=== PATIENT | female | born 1950 | race Caucasian/White ===

== ENCOUNTER → 2019-08-03 11:37 | Outpatient (CLI) | payer OTHER, SELFPAY ==
--- NOTE | ~2019-08-03 | XR_ITS ---
EXAMINATION: XR knee RT 2V DATE: 08/03/2019 11:57 INDICATION: Right knee pain. TECHNIQUE: 2 views of right knee were obtained. COMPARISON: None. FINDINGS: There is varus angulation at the knee. No fracture. There is severe osteoarthritis of media l compartment, moderate osteoarthritis of patellofemoral compartment, and mild osteoarthritis of late ral compartment. There is a small knee joint effusion. IMPRESSION: 1. Severe right knee osteoarthritis. 2. Small right knee joint effusion. Reviewed, dictated and finalized at location A. [employer]
== END ==
PROVIDERS: PCP Family Medicine; Visit Provider Nurse Practitioner Family
DX: M17.11 Unilateral primary osteoarthritis, right knee (principal); M25.461 Effusion, right knee
CPT/HCPCS: 73560

== ENCOUNTER 2019-08-30 13:38 | Outpatient (RCR) | payer OTHER, SELFPAY ==
--- NOTE | 2019-08-30 15:11 | PTOPEVAL ---
PHYSICAL THERAPY EVALUATION AND DISCHARGE Thank you for referring this patient to [facility]. Mya was seen today for an evaluation of right knee pain to assess for aquatic therapy. She was assessed and found she is a candidate for aquatic physical therapy to address right knee pain; however, due to co-pay for physical therapy, she requested to be provided with HEP in order to continue independently at pool at public gym. She was provided with extensive education and handouts of exercises and including exercise progression. She will be discharged from our care at this time. If Mya requires further care, we would be happy to assist. Please review, sign, date and return care CORINNA. I agree with and certify that the following plan of care is medically necessary. Referring Physician Date Attending Provider: Sohan Lewis MD Evaluation Evaluation Information Diagnosis right knee pain Onset July 2019 Subjective Information Mya is here today with Query Text:As Reported By Patient/ subacute right knee pain. She Family does have a history of arthroscopic surgery from 20 years ago. Pain initially started 4-5 years ago where she started to take stairs one at a time, but worst pain started in July of this year. She did receive an injection from the physician and it seems to help. Patient notes that she has a 30$ co-pay and is not sure will be able to return for further visits. 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 Self Report Pain Assessment Right Knee(s) Reported Pain Level 5 Pain Description Aching,Sharp Pain Frequency Acute,Continuous Current Pain Intensity 5 Lowest Pain Intensity 3 Greatest Pain Intensity 8 Pain Aggravating Factors Stair Climbing,Walking,Weight Bearing/Standing Knee Range of Motion Right Knee Flexion Range of Motion - Active 117 Knee Extension Range of Motion - Active 0 Query Text: Hip Strength Left Hip Flexion Strength 4+ Good + Hip Extension Strength 4+ Good + Hip Abduction Strength 4+ Good + Right Hip Flexion Strength 3+ Fair + Hip Extension Strength 4- Good - Hip Abduction Strength 4- Good - Knee Strength Left Knee Flexion Strength 5 Normal Knee Extension Strength 4+ Good + Right Knee Fle
== END 2019-09-03 11:10 | disposition home or self-care (01) ==
LOC: ANHPT 13:38
PROVIDERS: Visit Provider Orthopaedic Surgery
DX: M25.561 Pain in right knee (principal)
CPT/HCPCS: 97110; 97161

== ENCOUNTER 2020-02-20 02:16 | Outpatient (CLI) | payer OTHER, SELFPAY ==
[2020-02-20 18:39] LABS: SARS-CoV-2 RNA PCR Negative
== END 2020-02-20 02:17 | disposition home or self-care (01) ==
LOC: ANHCOVIDDT 02:16
PROVIDERS: Visit Provider Internal Medicine Gastroenterology
DX: Z01.812 Encounter for preprocedural laboratory examination (principal); Z20.828 Contact with and (suspected) exposure to other viral communicable diseases
CPT/HCPCS: 87635; C9803; U0003

== ENCOUNTER 2020-02-22 00:40 | Day surgery (SDC) | payer OTHER, SELFPAY ==
[2020-02-15 13:24] VITALS: BMI 36.4
[2020-02-22] MEDS: LACTATED RINGERS 1,000 ML 150 ML IV CONT (06:32)
[2020-02-22 06:33] VITALS: BP 113/89; PULSE 85; TEMP 37.1; O2SAT 97; BMI 36.8
--- NOTE | 2020-02-22 06:47 | WPDANESEPPF ---
Anes - Initial Pre Proc Eval Procedure: Operation Date: 02/22/20 07:30 Proposed Procedures p Screening Colonoscopy - Fam Munroe MD Date/Time: 02/22/20 06:47 Surgeon: Fam Munroe MD Pre Op Diagnosis: History of Polyps Patient Data Age: 69 Gender: F Height: 1.5 m Weight: 82.6 kg Last Vital Signs Temp 37.1 C 02/22/20 06:33 Pulse 85 02/22/20 06:33 BP 113/89 02/22/20 06:33 Pulse Ox 97 02/22/20 06:33 Allergies Allergy/AdvReac Type Severity Reaction Status Date / Time Sulfa (Sulfonamide Allergy Intermediate headache/na Verified 02/22/20 06:18 Antibiotics) usea/rash hydrocodone Allergy Mild VOMITOING/C Verified 02/22/20 06:18 RAMPS Penicillins Allergy Mild THROAT Verified 02/22/20 06:18 SWELLING tramadol Allergy Mild VOMITING Verified 02/22/20 06:18 CRAMPS morphine Allergy Unknown RASH,VOMITI Verified 02/22/20 06:18 NG NOVOCAINE Allergy Mild HAE Uncoded 02/22/20 06:18 HEADACHES/NAUSEA X 2 DAYS STRAWBERRIES, CHOCOLATE Allergy Unknown Unknown Uncoded 02/22/20 06:18 Home Medications Medication Instructions Recorded Confirmed Type fluticasone propionate 50 1 spray NASAL Q12H #18.2 ml 06/05/19 02/22/20 Rx mcg/actuation nasal spray,suspension hydrochlorothiazide 12.5 mg tablet 12.5 mg PO DAILY #90 tablet 06/05/19 02/15/20 Rx clonidine HCl 0.1 mg tablet 0.1 mg PO BID PRN #180 tablet 08/02/19 02/22/20 Rx multivitamin 1 tablet PO DAILY 08/02/19 02/15/20 History fenofibrate 160 mg tablet 160 mg PO DAILY #90 tablet 01/30/20 02/22/20 Rx alendronate 70 mg tablet 70 mg PO WEEKLY #12 tablet 02/14/20 02/22/20 Rx amlodipine 10 mg tablet 10 mg PO DAILY #90 tablet 02/14/20 02/22/20 Rx calcium carbonate 600 mg (1,500 1 cap PO DAILY 02/14/20 02/22/20 History mg)-vitamin D3 500 unit capsule duloxetine 60 mg capsule,delayed 60 mg PO DAILY #90 cap 02/14/20 02/22/20 Rx release losartan 100 mg tablet 100 mg PO DAILY #90 tablet 02/14/20 02/15/20 Rx omeprazole 20 mg capsule,delayed 20 mg PO DAILY #90 cap 02/14/20 02/15/20 Rx release Zfudwvdh-Nlzmw-SNF(with boron) 2 tab-cap PO DAILY 02/15/20 02/22/20 History diphenhydramine HCl [Benadryl] 25 mg PO DAILY PRN 02/15/20 02/22/20 History Patient hx anesthesia problems: none Family hx anesthesia problems: none PMFSH Past Medical History Medical History (Updated 02/19/20 @ 16:15 by Angela Lopez PA-C) Asthma Atherosclerosis of aorta Back pain Chronic diastolic (congestive) heart failure Chronic sinus infection Depression Diverticulosis Endometriosis Epistaxis Gallbladder disease GERD (gastroesophageal reflux disease) Heart murmur HLD (hyperlipidemia) HTN (hypertension) IBS (irritable bowel syndrome) MDD (major depressive disorder), recurrent episode, moderate Mitral valve prolapse Obstructive sleep apnea Osteoarthritis Osteopenia Pancreatic cyst Pancreatitis Rectal polyp Sleep apnea Stress incontinence Toe fracture, left Ulcer Surgical History Surgical History History of section History of cholecystectomy History of cochlear implant rt ear History of colon surgery History of dilation and curettage History of hysterectomy History of neck surgery History of tonsillectomy S/P arthroscopic surgery of right knee Social History Social History (Updated 02/14/20 @ 14:01 by Litzy Webb) Social History: Smoking status: Never smoker Second hand tobacco smoke exposure: No Alcohol intake: never Substance use: never Substance use type: does not use Gender identity (if verbalized by the patient): Female Anes - Eval Final PreProcedure Day of Procedure 02/22/20 06:47 Patient weight: obese Heart: regular rate and rhythm Lungs: clear to auscultation and normal air movement Airway: Mallampati scale class II Neurological: alert and oriented Last oral intake: >/= 8 hours ASA classification: III
--- NOTE | 2020-02-22 07:07 | PM.HPGS ---
History of Present Illness History of Present Illness Consent: Risks, benefits, and alternatives have been discussed and questions answered. Patient agrees to proceed with procedure. Chief complaint: History of Polyps Narrative: Mya Espinoza is a 69 year old female With a history of polyps. She also has a family history of colon cancer [facility] Past Medical History Medical History Asthma Atherosclerosis of aorta Back pain Chronic diastolic (congestive) heart failure Chronic sinus infection Depression Diverticulosis Endometriosis Epistaxis Gallbladder disease GERD (gastroesophageal reflux disease) Heart murmur HLD (hyperlipidemia) HTN (hypertension) IBS (irritable bowel syndrome) MDD (major depressive disorder), recurrent episode, moderate Mitral valve prolapse Obstructive sleep apnea Osteoarthritis Osteopenia Pancreatic cyst Pancreatitis Rectal polyp Sleep apnea Stress incontinence Toe fracture, left Ulcer Surgical History Surgical History History of section History of cholecystectomy History of cochlear implant rt ear History of colon surgery History of dilation and curettage History of hysterectomy History of neck surgery History of tonsillectomy S/P arthroscopic surgery of right knee Social History Social History Social History: Smoking status: Never smoker Second hand tobacco smoke exposure: No Alcohol intake: never Substance use: never Substance use type: does not use Gender identity (if verbalized by the patient): Female Meds Home Medications and Allergies Home Medications Medication Instructions Recorded Confirmed Type fluticasone propionate 50 1 spray NASAL Q12H #18.2 ml 06/05/19 02/22/20 Rx mcg/actuation nasal spray,suspension hydrochlorothiazide 12.5 mg tablet 12.5 mg PO DAILY #90 tablet 06/05/19 02/15/20 Rx clonidine HCl 0.1 mg tablet 0.1 mg PO BID PRN #180 tablet 08/02/19 02/22/20 Rx multivitamin 1 tablet PO DAILY 08/02/19 02/15/20 History fenofibrate 160 mg tablet 160 mg PO DAILY #90 tablet 01/30/20 02/22/20 Rx alendronate 70 mg tablet 70 mg PO WEEKLY #12 tablet 02/14/20 02/22/20 Rx amlodipine 10 mg tablet 10 mg PO DAILY #90 tablet 02/14/20 02/22/20 Rx calcium carbonate 600 mg (1,500 1 cap PO DAILY 02/14/20 02/22/20 History mg)-vitamin D3 500 unit capsule duloxetine 60 mg capsule,delayed 60 mg PO DAILY #90 cap 02/14/20 02/22/20 Rx release losartan 100 mg tablet 100 mg PO DAILY #90 tablet 02/14/20 02/15/20 Rx omeprazole 20 mg capsule,delayed 20 mg PO DAILY #90 cap 02/14/20 02/15/20 Rx release Srhwaigp-Obqyd-URI(with boron) 2 tab-cap PO DAILY 02/15/20 02/22/20 History diphenhydramine HCl [Benadryl] 25 mg PO DAILY PRN 02/15/20 02/22/20 History Allergies Allergy/AdvReac Type Severity Reaction Status Date / Time Sulfa (Sulfonamide Allergy Intermediate headache/na Verified 02/22/20 06:18 Antibiotics) usea/rash hydrocodone Allergy Mild VOMITOING/C Verified 02/22/20 06:18 RAMPS Penicillins Allergy Mild THROAT Verified 02/22/20 06:18 SWELLING tramadol Allergy Mild VOMITING Verified 02/22/20 06:18 CRAMPS morphine Allergy Unknown RASH,VOMITI Verified 02/22/20 06:18 NG NOVOCAINE Allergy Mild HAE Uncoded 02/22/20 06:18 HEADACHES/NAUSEA X 2 DAYS STRAWBERRIES, CHOCOLATE Allergy Unknown Unknown Uncoded 02/22/20 06:18 Vital Signs Vital Signs - 24 hr 02/22/20 06:33 Temperature 37.1 C Pulse Rate 85 Blood Pressure 113/89 Pulse Oximetry 97 Exam Resp: Auscultation: clear to auscultation bilaterally Cardio: Rate: regular rate Rhythm: regular rhythm GI: GI Palp: Yes Soft to palpation and No Tenderness to palpation present (GI) Assessment and Plan Assessment and plan (1) Personal history of colonic polyps: Code(s): Z86.010 - Pe
[2020-02-22 07:44] VITALS: BP 111/63; PULSE 74; RESP 20; O2SAT 98
[2020-02-22 07:54] VITALS: BP 124/63; PULSE 69; RESP 21; O2SAT 97
[2020-02-22 08:04] VITALS: BP 124/72; PULSE 60; RESP 17; O2SAT 95
== END 2020-02-22 08:13 | disposition home or self-care (01) ==
PROVIDERS: Visit Provider Internal Medicine Gastroenterology
PROC: 0DJD8ZZ Inspection of Lower Intestinal Tract, Via Natural or Artificial Opening Endoscopic (ICD-10-PCS; CPT 45378; principal; 2020-02-22 07:30)
DX: Z12.11 Encounter for screening for malignant neoplasm of colon (principal); Z86.010 Personal history of colon polyps; Z80.0 Family history of malignant neoplasm of digestive organs; K57.30 Diverticulosis of large intestine without perforation or abscess without bleeding; J45.909 Unspecified asthma, uncomplicated; I50.32 Chronic diastolic (congestive) heart failure; K21.9 Gastro-esophageal reflux disease without esophagitis; I11.0 Hypertensive heart disease with heart failure; E78.5 Hyperlipidemia, unspecified; G47.33 Obstructive sleep apnea (adult) (pediatric)
CPT/HCPCS: G0105; J2704; J7120

== ENCOUNTER 2020-02-25 14:19 | Outpatient (CLI) | payer OTHER, SELFPAY ==
--- NOTE | ~2020-02-25 | MM_ITS ---
EXAMINATION: MM screening maria teresa BI w joce HISTORY: Screening TECHNIQUE: Craniocaudal and mediolateral oblique 3-D tomosynthesis images were obtained and synthetic 2-D images were generated. CAD analysis was submitted and interpreted. COMPARISON: Comparison to multiple prior studies sequentially, with oldest reviewed study dated 02/26. BREAST PARENCHYMAL COMPOSITION: There are scattered areas of fibroglandular density. FINDINGS: There is no evidence of suspicious mass, calcification, or architectural distortion to sugg est malignancy in either breast. There has been no suspicious interval change. IMPRESSION: 1. No mammographic evidence of malignancy. 2. Recommend routine screening mammography in one year. BI-RADS Category 1: Negative Reviewed, dictated and finalized at location A.
== END 2020-02-25 14:20 | disposition home or self-care (01) ==
LOC: ANHIMG 14:21
PROVIDERS: Visit Provider Physician Assistant
DX: Z12.31 Encounter for screening mammogram for malignant neoplasm of breast (principal)
CPT/HCPCS: 77063; 77067

== ENCOUNTER 2020-12-22 11:41 | Outpatient (CLI) | payer OTHER, SELFPAY ==
[2020-12-22 13:45] LABS: Basophils Absolute Auto 0.1 K/mm3 (0.0-0.1); Basophils Percent Auto 0.8 % (0.2-1.2); Eosinophils Absolute Auto 0.1 K/mm3 (0-0.3); Eosinophils Percent Auto 1.8 % (0-4.4); Hematocrit 47.5 % (37.0-47.0); Hemoglobin 16.2 g/dL (12.0-15.0); Immature Granulocyte Absolute 0.02 K/mm3 (0.00-0.031); Immature Granulocyte Percent A 0.3 % (0-0.5); Lymphocytes Absolute Auto 2.89 K/mm3 (0.9-3.2); Mean Corpuscular HGB Conc 34.1 g/dl (32-36); Mean Platelet Volume 12.1 fl (7.4-10.4); Monocytes Absolute Auto 0.6 K/mm3 (0.1-0.6); Monocytes Percent Auto 7.3 % (2.6-8.5); Neutrophils Absolute Auto 4.1 K/mm3 (1.3-6.7); Neutrophils Percent Auto 52.8 % (45.5-73.1); Platelet Count Result 267 k/mm3 (150-375); Red Cell Distribution Width 12.9 % (11.5-14.5); White Blood Count 7.8 K/mm3 (4.5-10.0)
[2020-12-22 13:47] LABS: Add Urine Microscopic? NO; Appearance Urine Clear (Clear); Bilirubin Urine Negative (Negative); Blood Urine Negative (Negative); Color Urine Straw (Yellow); Glucose Urine UA Negative (Negative); Ketones Urine Negative (Negative); Leukocyte Esterase Ur Negative LEU/UL (Negative); Nitrate Urine Negative (Negative); Protein Urine Negative (Negative); Specific Grav Ur 1.008 (1.001-1.035); Urobilinogen Urine Negative mg/dL (<2.0)
[2020-12-22 13:52] LABS: Hemoglobin A1C 5.8 % (<5.7)
[2020-12-22 13:53] LABS: Urine Cotinine NEGATIVE
[2020-12-22 13:54] LABS: Anion Gap 8 mmol/L (8-16); Blood Urea Nitrogen 12 mg/dL (7-17); Calcium 9.9 mg/dL (8.4-10.2); Carbon Dioxide 32 mmol/L (22-30); Chloride 102 mmol/L (98-107); Estimated Glomerular Filt Rate > 60; Glucose 101 mg/dL (65-105); INR 0.9; Prothrombin Time 12.9 Seconds (11.1-14.7); Sodium 142 mmol/L (137-145)
== END 2020-12-22 11:42 | disposition home or self-care (01) ==
PROVIDERS: Visit Provider Orthopaedic Surgery
DX: Z01.818 Encounter for other preprocedural examination (principal); M17.10 Unilateral primary osteoarthritis, unspecified knee
CPT/HCPCS: 80048; 80307; 81003; 82040; 83036; 85025; 85610; 85730; 86850; 86900; 86901; 87081

== ENCOUNTER 2020-12-31 18:44 | Observation (INO) | payer OTHER, SELFPAY ==
[2020-12-22 12:22] VITALS: BP 142/74; PULSE 86; RESP 18; TEMP 37; O2SAT 94; BMI 32.1
[2020-12-30] VITALS (14 sets, daily range): BP systolic 129–156; BP diastolic 64–92; PULSE 81–95; RESP 12–20; TEMP 36.3–36.8; O2SAT 89–97
--- NOTE | 2020-12-30 07:31 | WPDHPUPDATE1 ---
History and Physical Update Update Date/Time: 12/30/20 07:31 History and Physical has been reviewed, including an updated exam of the patient. There are NO changes in the patient's condition. Risks, benefits, and alternatives have been discussed and questions answered. Patient agrees to proceed with procedure.
[2020-12-30] MEDS: ACETAMINOPHEN 500 MG TABLET 1000 MG PO (09:36)
--- NOTE | 2020-12-30 09:50 | WPDANESEPPF ---
Anes - Initial Pre Proc Eval Procedure: Operation Date: 12/30/20 11:00 Proposed Procedures p Right Total Knee Arthroplasty - Jamie Silva MD Date/Time: 12/30/20 09:50 Surgeon: Jamie Silva MD Pre Op Diagnosis: right knee DJD Patient Data Age: 70 Gender: F Height: 1.5 m Weight: 71.5 kg Last Vital Signs Temp 36.8 C 12/30/20 09:20 Pulse 81 12/30/20 09:20 Resp 16 12/30/20 09:20 BP 129/66 12/30/20 09:20 Pulse Ox 97 12/30/20 09:20 Allergies Allergy/AdvReac Type Severity Reaction Status Date / Time morphine Allergy Severe RASH,VOMITING,throat Verified 12/30/20 09:28 swelling Penicillins Allergy Severe THROAT Verified 12/30/20 09:28 SWELLING Sulfa (Sulfonamide Allergy Intermediate headache/na Verified 12/30/20 09:28 Antibiotics) usea/rash procaine [From Novocain] Allergy Mild Headache, Verified 12/30/20 09:28 nausea, rash hydrocodone AdvReac Mild VOMITTING Verified 12/30/20 09:28 Home Medications Medication Instructions Recorded Confirmed Type multivitamin 1 tablet PO DAILY 08/02/19 12/30/20 History calcium carbonate 600 mg (1,500 1 cap PO HS 02/14/20 12/30/20 History mg)-vitamin D3 500 unit capsule Ionfyaav-Cfzte-QEV(with boron) 2 tab-cap PO QAM 02/15/20 12/30/20 History diphenhydramine HCl [Benadryl] 25 mg PO DAILY PRN 02/15/20 12/30/20 History alendronate 70 mg tablet 70 mg PO WEEKLY #12 tablet 08/01/20 12/30/20 Rx rosuvastatin 5 mg tablet 5 mg PO QPM #90 tablet 10/13/20 12/30/20 Rx clonidine HCl 0.1 mg tablet 0.1 mg PO BID PRN #180 tablet 11/13/20 12/30/20 Rx Serovital Hgh 4 tablet DAILY 12/22/20 12/30/20 History amlodipine 10 mg PO HS 12/22/20 12/30/20 History collagen (bovine) 1 ea TOPICAL DAILY 12/22/20 12/30/20 History duloxetine [Cymbalta] 60 mg PO QAM 12/22/20 12/22/20 History furosemide 20 mg PO PRN PRN 12/22/20 12/30/20 History losartan-hydrochlorothiazide 1 tablet PO QAM 12/22/20 12/30/20 History omeprazole 40 mg PO QAM 12/22/20 12/30/20 History polyethylene glycol 3350 [Miralax] 17 g PO QAM 12/22/20 12/30/20 History Patient hx anesthesia problems: none Family hx anesthesia problems: none PMFSH Past Medical History Medical History Abscess Asthma Atherosclerosis of aorta Back pain Chronic diastolic (congestive) heart failure Chronic sinus infection Degenerative joint disease of knee Depression Diverticulosis Endometriosis Epistaxis Gallbladder disease GERD (gastroesophageal reflux disease) Heart murmur HLD (hyperlipidemia) HTN (hypertension) IBS (irritable bowel syndrome) MDD (major depressive disorder), recurrent episode, moderate Mitral regurgitation Mitral valve prolapse Mixed hyperlipidemia Obstructive sleep apnea Osteoarthritis Osteoarthritis of right knee Osteopenia Pancreatic cyst Pancreatitis Personal history of colonic polyps Rectal polyp Right knee pain Screening for breast cancer Sleep apnea Stress incontinence Toe fracture, left Ulcer URI (upper respiratory infection) Surgical History Surgical History History of section History of cholecystectomy History of cochlear implant rt ear History of colon surgery History of dilation and curettage History of hysterectomy History of neck surgery History of tonsillectomy S/P arthroscopic surgery of right knee Family History Family History Father Family history of premature coronary heart disease, Onset Age: 78 Patient's father is Social History Social History Social History: Second hand tobacco smoke exposure: No Alcohol intake: never Substance use: never Substance use type: does not use Gender identity (if verbalized by the patient): Female Spiritual care concerns: No Anes - Eval Final P
[2020-12-30] MEDS: LACTATED RINGERS 1,000 ML 30 ML IV CONT ×2 (10:02→13:35)
[2020-12-30] MEDS: TRANEXAMIC ACID 1,000MG/ISO100 1,000 MG/100 ML BAG 200 MG IVPB (10:36)
--- NOTE | 2020-12-30 10:43 | WPDANESPNB ---
Anes - Peripheral Nerve Block Date/Time: 12/30/20 10:43 I have discussed with the patient/family/POA the placement of a peripheral nerve block for post-operative pain management, including associated risks, benefits, complications, and side effects. Alternative methods of post-operative analgesia were detailed. Questions were solicited and answers provided to the satisfaction of the patient/family/POA. Time-Out: A pre-procedural Time-Out was completed immediately before starting the procedure and confirmed: Patient Identification, Site, Procedure, Patient Position and the Availability of Requisite Equipment. Clinical Indications: Acute post-operative pain management requested by the operative surgeon. Nerve Block Insertion Note Anes-nerve block: femoral right Patient position: supine Needle: 22 gauge, stimulating, insulated echogenic needle. Needle length: 50 mm Technique: nerve stimulation lost at (mA) (0.4) Injectate: bupivacaine 0.5% with epi 5 mcg/ml Observations: tolerated well Complications: none Procedure start time:: 1040 Procedure end time:: 1044
[2020-12-30] MEDS: ceFAZolin 2 GM/D5W 50 ML 2 GM/50 ML BAG IVPB ×2 (11:00→18:04)
[2020-12-30] MEDS: GENTAMICIN BONE CEMENT REFOBACIN 1 EACH TOPICAL (12:02)
[2020-12-30] MEDS: TRANEXAMIC ACID 1,000 MG/10 ML AMPUL 1000 MG IV PUSH (12:45)
--- NOTE | 2020-12-30 13:29 | W.PM.PROC2 ---
Procedure Note - Detailed Date of Procedure 12/30/20 Pre-op Diagnosis right knee DJD Post-op Diagnosis same Procedure Performed R TKA Surgeon Jamie Silva MD Anesthesia general Description of Procedure THE RIGHT KNEE WAS PREPPED AND DRAPED IN THE STERILE FASHION. THERE WAS A 10 DEGREE FLEXION CONTRACTURE. A MIDLINE SKIN INCISION WAS MADE. A MEDIAL PARAPATELLAR ARTHROTOMY WAS MADE. THE PATELLA WAS EVERTED. THERE WAS TRICOMPARTMENT DJD. THERE WAS MINIMAL PATELLA DJD. AN INTRAMEDULLARY KULWINDER WAS PLACED IN THE FEMUR. A DISTAL FEMORAL CUT WAS MADE IN 5 DEGREES OF VALGUS REMOVING APPROXIMATELY 9 MM OF BONE FROM THE DISTAL FEMUR. THE FEMUR WAS SIZED TO 62.5. A 62.5 FEMORAL CUTTING BLOCK WAS PLACED IN 3 DEGREES OF EXTERNAL ROTATION AND IN ALIGNMENT WITH ILENE'S LINE AND THE TRANSEPICONDYLAR AXIS. ANTERIOR POSTERIOR AND CHAMFER CUTS WERE MADE. THE CUTS WERE EXCELLENT. NEXT AN INTRAMEDULLARY CUTTING GUIDE WAS PLACED IN THE TIBIA. A TRANS TIBIAL CUT WAS MADE ALONG THE LONG AXIS OF THE TIBIA. APPROXIMATELY 10 MM OF BONE WAS REMOVED FROM THE HIGH SIDE OF THE TIBIA. THE TIBIA WAS THEN PLANED TO A SMOOTH SURFACE. POSTERIOR FEMORAL OSTEOPHYTES WERE REMOVED FROM THE FEMORAL CONDYLES. A 67 TIBIAL TRIAL WAS PLACED IN ALIGNMENT WITH THE 1/3 MEDIAL ASPECT OF THE TIBIAL TUBERCLE. THEN A 62.5 FEMORAL TRIAL COMPONENT WAS PLACED. BOTH HAD EXCELLENT FITS. EVENTUALLY A 10 MM CR POLYETHYLENE TRIAL COMPONENT WAS PLACED. THE KNEE WAS TAKEN THROUGH A RANGE OF MOTION. THE KNEE CAME OUT TO FULL EXTENSION. THERE WAS NO ABNORMAL TILT TO THE PATELLA. THERE WAS GOOD A/P AND VARUS/VALGUS STABILITY. THERE WAS NO EXCESSIVE ROLL BACK WITH FLEXION. THE TRIAL COMPONENTS WERE REMOVED. THEN A 62.5 FEMORAL COMPONENT AND 67 TIBIAL COMPONENT WITH A 10 CR POLYETHYLENE COMPONENT WERE CEMENTED INTO PLACE. ONCE THE CEMENT WAS HARD THE KNEE WAS TAKEN THROUGH A ROM AGAIN AND FOUND TO BE STABLE WITH NO PATELLA TILT NO EXCESSIVE ROLL BACK WITH FLEXION AND GOOD STABILITY WITH COMPLETE AND FULL EXTENSION. THE KNEE WAS IRRIGATED WITH STERILE BETADINE AND WATER FOR ABOUT 3 MINUTES. THE BLEEDERS WERE CAUTERIZED. THE ARTHROTOMY WAS REPAIRED WITH NUMBER 1 VICRYL. THE SUB CUTANEOUS LAYER WITH 2-0 VICRYL AND THE SKIN WITH LUKAS. THE WOUND WAS WASHED AND A STERILE DRESSING WAS APPLIED. PATIENT WAS EXTUBATED. Estimated Blood Loss -150.0 Pathology none sent Complications No immediate complications Condition stable Disposition PACU
[2020-12-30] MEDS: fentaNYL CITRATE INJ (*CRX) 100 MCG/2 ML VIAL 25 MCG IV PUSH (14:43)
[2020-12-30] MEDS: oxyCODONE HCL (*CRX) 2.5 MG TAB IR 7.5 MG PO ×2 (15:18→19:47)
[2020-12-30] MEDS: SODIUM CHLORIDE 0.9% IV 1,000 ML 125 ML IV CONT (15:20)
--- NOTE | 2020-12-30 15:20 | ADMGEN ---
This patient, Mya Espinoza, was admitted to 2 Medical Room 241-. Patient/family oriented to hospital policies and general routines including ID bracelet, bed and alarms, visiting hours, pain management, procedures, bathroom and other care routines, personal items, smoking policy, room service/diet, and visiting hours. Information on how to activate the Rapid Response Team has been discussed. Patient/Family are encouraged to report perceived risks to care and to ask questions if they do not understand what they are told or what they should do.
[2020-12-30] MEDS: DOCUSATE SODIUM 100 MG CAPSULE PO (16:48)
[2020-12-30] MEDS: CELECOXIB 200 MG CAPSULE PO (16:48)
[2020-12-30] MEDS: ROSUVASTATIN 5 MG TABLET PO (16:49)
[2020-12-30] MEDS: FAMOTIDINE 20 MG TABLET PO (20:42)
[2020-12-30] MEDS: ASPIRIN 325 MG ENTERIC TABLET PO (20:42)
[2020-12-30] MEDS: amLODIPine BESYLATE 5 MG TABLET 10 MG PO (20:43)
[2020-12-30] MEDS: PANTOPRAZOLE 40 MG TABLET PO (20:43)
[2020-12-30] MEDS: diazePAM (*CRX) 5 MG TABLET PO (20:44)
[2020-12-30] MEDS: oxyCODONE/ACETAMINOPHEN (*CRX) 5-325 MG TABLET 1 TABLET PO (21:53)
[2020-12-31] VITALS (7 sets, daily range): BP systolic 101–132; BP diastolic 54–83; PULSE 74–99; RESP 14–20; TEMP 36.1–36.9; O2SAT 90–99
--- NOTE | ~2020-12-31 | XR_ITS ---
EXAMINATION: XR knee RT 2V DATE: 12/30/2020 14:08 INDICATION: Right knee arthroplasty. Postop. TECHNIQUE: 2 views of right knee were obtained. COMPARISON: Right knee radiographs 11/06/2020 FINDINGS: There is a total right knee arthroplasty in near-anatomic alignment without patellar resurf acing. No fracture. There is gas and fluid in the knee joint. There is gas in the soft tissues, consi stent with recent surgery. Anterior skin elias are noted. IMPRESSION: 1. Total right knee arthroplasty in near-anatomic alignment. Reviewed, dictated and finalized at location A.
[2020-12-31] MEDS: ceFAZolin 2 GM/D5W 50 ML 2 GM/50 ML BAG IVPB ×2 (02:32→11:23)
[2020-12-31] MEDS: oxyCODONE/ACETAMINOPHEN (*CRX) 5-325 MG TABLET 1 TABLET PO ×2 (02:33→06:37)
[2020-12-31 05:47] LABS: Basophils Percent Auto 0.2 % (0.2-1.2); Hematocrit 36.5 % (37.0-47.0); Hemoglobin 12.7 g/dL (12.0-15.0); Immature Granulocyte Absolute 0.04 K/mm3 (0.00-0.031); Immature Granulocyte Percent A 0.3 % (0-0.5); Lymphocytes Percent Auto 9.3 % (18.3-44.2); Mean Corpuscular HGB Conc 34.8 g/dl (32-36); Mean Corpuscular Hemoglobin 30.4 pg (26-34); Mean Corpuscular Volume 87.3 fl (80-100); Mean Platelet Volume 11.7 fl (7.4-10.4); Monocytes Absolute Auto 1.5 K/mm3 (0.1-0.6); Monocytes Percent Auto 9.9 % (2.6-8.5); Neutrophils Percent Auto 80.3 % (45.5-73.1); Platelet Count Result 244 k/mm3 (150-375); Red Blood Count 4.18 M/mm3 (4.2-5.4)
[2020-12-31 06:01] LABS: Anion Gap 7 mmol/L (8-16); Blood Urea Nitrogen 13 mg/dL (7-17); Calcium 9.1 mg/dL (8.4-10.2); Carbon Dioxide 31 mmol/L (22-30); Chloride 98 mmol/L (98-107); Estimated Glomerular Filt Rate > 60; Glucose 135 mg/dL (65-105); Potassium 3.7 mmol/L (3.4-5.0); Sodium 136 mmol/L (137-145)
--- NOTE | 2020-12-31 07:39 | P.PNAN_ITS ---
Anes - Prog Note Post-Op Date/Time: 12/31/20 07:39 Cardiovascular status: normal Respiratory status: normal Airway patency: baseline Mental status: baseline Post-Op hydration status: normal Vital Signs: Last Vital Signs Temp 36.9 C 12/31/20 05:04 Pulse 93 12/31/20 05:04 Resp 20 12/31/20 05:04 BP 129/64 12/31/20 05:04 Pulse Ox 92 12/31/20 05:04 Pain Score (VAS): 3 I/O: Intake & Output 12/30/20 12/30/20 12/31/20 15:59 23:59 07:59 Intake Total 350 930 340 Output Total 900 Balance 350 930 -560 Laboratory Tests 12/31/20 05:04 12/31/20 05:04 12/31/20 12/31/20 05:04 05:04 WBC 15.0 H RBC 4.18 L Hgb 12.7 D Hct 36.5 L MCV 87.3 MCH 30.4 MCHC 34.8 RDW 13.0 Plt Count 244 MPV 11.7 H Immature Gran % (Auto) 0.3 Neut % (Auto) 80.3 H Lymph % (Auto) 9.3 L Warrick % (Auto) 9.9 H Eos % (Auto) 0.0 Baso % (Auto) 0.2 Lymph # (Auto) 1.40 Warrick # (Auto) 1.5 H Eos # (Auto) 0.0 Baso # (Auto) 0.0 Abs Immat Gran (auto) 0.04 H Absolute Neuts (auto) 12.0 H Absolute Nucleated RBC 0.0 Nucleated RBC % 0.0 Sodium 136 L Potassium 3.7 Chloride 98 Carbon Dioxide 31 H Anion Gap 7 L BUN 13 Creatinine 0.50 L Estim Creat Clear Calc Not Reportable Estimated GFR > 60 Glucose 135 H Calcium 9.1 Post-procedural complaints: none Patient Feedback: Patient satisfied with anesthetic care.
--- NOTE | 2020-12-31 08:01 | PM.IMCN ---
Assessment and Plan Assessment and plan (1) Osteoarthritis of right knee: Code(s): M17.11 - Unilateral primary osteoarthritis, right knee Status: Acute Assessment and Plan: Status post right knee surgery. Will continue pain medication and physical therapy. (2) Mixed hyperlipidemia: Code(s): E78.2 - Mixed hyperlipidemia Status: Acute Assessment and Plan: Stable current medication. (3) HTN (hypertension): Code(s): I10 - Essential (primary) hypertension Status: Acute Assessment and Plan: Will monitor closely stable on current medication. (4) GERD (gastroesophageal reflux disease): Code(s): K21.9 - Gastro-esophageal reflux disease without esophagitis Status: Acute Assessment and Plan: stable on current medications (5) Depression: Code(s): F32.9 - Major depressive disorder, single episode, unspecified Status: Acute Assessment and Plan: Stable on current medication Additional Plan Will continue with physical therapy. Will continue pain management. Monitor blood pressure closely. HPI Data of Consult Consult date: 12/31/20 Requesting Physician: Jamie Silva MD Primary Care Provider: Lauryn Gabriel Consult Narrative Narrative: Mya Espinoza is a 70 year old female was seen today for management of hypertension and high cholesterol. Patient is status post right knee surgery. Patient denies any complaints at present time. Patient denies any shortness of breath or chest pain. No abdominal pain, no nausea, no vomiting. No fever. Mood stable. Pain under control. Review of Systems Review of Systems: All systems reviewed & are unremarkable except as noted in HPI and below ( the history and physical exam.) [facility] Past Medical History Medical History (Updated 12/31/20 @ 08:10 by Adrian Campos MD) Abscess Asthma Atherosclerosis of aorta Back pain Chronic diastolic (congestive) heart failure Chronic sinus infection Degenerative joint disease of knee Depression Diverticulosis Endometriosis Epistaxis Gallbladder disease GERD (gastroesophageal reflux disease) Heart murmur HLD (hyperlipidemia) HTN (hypertension) IBS (irritable bowel syndrome) MDD (major depressive disorder), recurrent episode, moderate Mitral regurgitation Mitral valve prolapse Mixed hyperlipidemia Obstructive sleep apnea Osteoarthritis Osteoarthritis of right knee Osteopenia Pancreatic cyst Pancreatitis Personal history of colonic polyps Rectal polyp Right knee pain Screening for breast cancer Sleep apnea Stress incontinence Toe fracture, left Ulcer URI (upper respiratory infection) Surgical History Surgical History History of section History of cholecystectomy History of cochlear implant rt ear History of colon surgery History of dilation and curettage History of hysterectomy History of neck surgery History of tonsillectomy S/P arthroscopic surgery of right knee Family History Family History Father Family history of premature coronary heart disease, Onset Age: 78 Patient's father is Social History Social History Social History: Smoking status: Never smoker Second hand tobacco smoke exposure: No Alcohol intake: never Substance use: never Substance use type: does not use Gender identity (if verbalized by the patient): Female Spiritual care concerns: No Meds Home Medications and Allergies Home Medications Medication Instructions Recorded Confirmed Type multivitamin 1 tablet PO DAILY 08/02/19 12/30/20 History calcium carbonate 600 mg (1,500 1 cap PO HS 02/14/20 12/30/20 History mg)-vitamin D3 500 unit capsule [id number](with boron) 2 tab-cap PO QAM 02/15/20 12/30/20 History
[2020-12-31] MEDS: ONDANSETRON INJ 4 MG/2 ML VIAL IV PUSH ×2 (08:10→19:41)
[2020-12-31] MEDS: ACETAMINOPHEN 500 MG TABLET 1000 MG PO (08:10)
[2020-12-31] MEDS: hydroCHLOROthiazide 12.5 MG CAPSULE PO (09:17)
[2020-12-31] MEDS: DULoxetine HCL 60 MG CAPSULE.DR PO (09:17)
[2020-12-31] MEDS: ASPIRIN 325 MG ENTERIC TABLET PO ×2 (09:17→20:10)
[2020-12-31] MEDS: CELECOXIB 200 MG CAPSULE PO ×2 (09:17→17:23)
[2020-12-31] MEDS: LOSARTAN POTASSIUM 100 MG TABLET PO (09:17)
[2020-12-31] MEDS: FAMOTIDINE 20 MG TABLET PO ×2 (09:17→20:11)
[2020-12-31] MEDS: PANTOPRAZOLE 40 MG TABLET PO ×2 (09:17→20:10)
[2020-12-31] MEDS: DOCUSATE SODIUM 100 MG CAPSULE PO ×2 (09:17→17:23)
[2020-12-31] MEDS: polyethylene glycoL 3350 17 GM POWD.PACK PO (09:18)
[2020-12-31] MEDS: oxyCODONE HCL (*CRX) 2.5 MG TAB IR 7.5 MG PO ×4 (10:24→20:11)
--- NOTE | 2020-12-31 16:14 | WPDPN ---
Progress Note: A&P Additional Plan POD 1 DOING WELL. MOST LIKELY NUMBNESS IS RELATED TO INTRAOPRATIVE BLOCK. WILL OBSERVE. CONTINUE PT. Exam Extrem: Other: VSS AFEBRILE DRESSING DRY NV INTACT ASIDE FROM SOME NUMBNESS ON THE PLANTAR AND DORSAL ASPECT OF THE FOOT, NEG HOMANS SIGN, CALF SOFT NON TENDER Objective Data Vital Signs Vital Signs: Vital Signs - 24 hr 12/30/20 16:40 12/30/20 20:40 12/30/20 21:20 Temperature 36.6 C 36.3 C L 36.3 C L Pulse Rate 93 94 94 Respiratory Rate 16 20 20 Blood Pressure 147/83 H 140/65 140/65 Pulse Oximetry 92 94 94 12/30/20 23:57 12/31/20 00:13 12/31/20 05:04 Temperature 36.6 C 36.9 C Pulse Rate 92 93 93 Respiratory Rate 14 20 20 Blood Pressure 127/61 129/64 Pulse Oximetry 97 90 92 12/31/20 09:28 12/31/20 10:00 12/31/20 14:30 Temperature 36.6 C 36.4 C L Pulse Rate 86 74 Respiratory Rate 16 14 Blood Pressure 132/62 128/56 L Pulse Oximetry 92 97 99 Intake/Output Intake/Output: Intake & Output 12/28/20 12/29/20 12/30/20 12/31/20 23:59 23:59 23:59 23:59 Intake Total 1280 990 Output Total 900 Balance 1280 90 Meds/Results Medications: Active Medications Generic Name Dose Route Start Last Admin Trade Name Freq PRN Reason Stop Dose Admin Acetaminophen 1,000 mg 12/30/20 14:55 12/31/20 08:10 Acetaminophen 500 Mg Tablet PO 1,000 mg Q6H PRN Administration Pain Rated 1-3 Alendronate Sodium 70 mg 01/04/21 06:30 Alendronate Sodium 70 Mg Tablet PO [email or web address]@[id number] JESSIE Amlodipine Besylate 10 mg 12/30/20 21:00 12/30/20 20:43 Amlodipine Besylate 5 Mg Tablet PO 10 mg HS JESSIE Administration Aspirin 325 mg 12/30/20 21:00 12/31/20 09:17 Aspirin 325 Mg Enteric Tablet PO 325 mg Q12HR JESSIE Administration Celecoxib 200 mg 12/30/20 17:00 12/31/20 09:17 Celecoxib 200 Mg Capsule PO 200 mg BIDWM JESSIE Administration Clonidine HCl 0.1 mg 12/30/20 14:55 Clonidine Hcl 0.1 Mg Tablet PO BID PRN hypertensive emergency Diazepam 5 mg 12/30/20 14:55 12/30/20 20:44 Diazepam (*Crx) 5 Mg Tablet PO 5 mg Q8H PRN Administration Spasms Diphenhydramine HCl 25 mg 12/30/20 14:55 Diphenhydramine Hcl Cap 25 Mg Capsule PO DAILY PRN Allergy Symptoms Docusate Sodium 100 mg 12/30/20 17:00 12/31/20 09:17 Docusate Sodium 100 Mg Capsule PO 100 mg BID JESSIE Administration Duloxetine HCl 60 mg 12/31/20 09:00 12/31/20 09:17 Duloxetine Hcl 60 Mg Capsule.Dr PO 60 mg QAM JESSIE Administration Famotidine 20 mg 12/30/20 21:00 12/31/20 09:17 Famotidine 20 Mg Tablet PO 20 mg Q12HR JESSIE Administration Furosemide 20 mg 12/30/20 14:55 Furosemide 20 Mg Tablet PO PRN PRN Edema Hydrochlorothiazide 12.5 mg 12/31/20 09:00 12/31/20 09:17 Hydrochlorothiazide 12.5 Mg Capsule PO 12.5 mg QAM JESSIE Administration Losartan Potassium 100 mg 12/31/20 09:00 12/31/20 09:17 Losartan Potassium 100 Mg Tablet PO 100 mg DAILY JESSIE Administration Naloxone HCl 0.1 mg 12/30/20 14:55 Naloxone Hcl 0.4 Mg/Ml Vial IV PUSH Q2M PRN Opiate Reversal Non-Formulary Medication 2 tab-cap 12/31/20 09:00 Kgyuluxy-Auxmo-Pqk(With [place]) PO 01/30/21 09:01 QAM JESSIE Ondansetron HCl 4 mg 12/30/20 14:55 12/31/20 08:10 Ondansetron Inj 4 Mg/2 Ml Vial IV PUSH 4 mg Q4H PRN Administration Nausea And Vomiting Oxycodone HCl 7.5 mg 12/30/20 14:55 12/31/20 14:24 Oxycodone Hcl (*Crx) 2.5 Mg Tab Ir PO 7.5 mg Q4H PRN Administration Pain Rated 7-10 Oxycodone/Acetaminophen 1 tablet 12/30/20 14:55 12/31/20 06:37 Oxycodone/Acetaminophen (*Crx) 5-325 Mg Tablet PO 1 tablet Q4H PRN Administration Pain Rated 4-6 Pantoprazole Sodium 40 mg 12/30/20 21:00 12/31/20 09:17 Pantoprazole 40 Mg Tablet PO 40 mg Q12HR JESSIE Administration Polyethylene Glycol 17 gm 12/31/20 09:00 12/31/20 09:18 Polyethylene Glycol 3350 17 Gm Po
[2020-12-31] MEDS: ROSUVASTATIN 5 MG TABLET PO (17:23)
[2020-12-31] MEDS: amLODIPine BESYLATE 5 MG TABLET 10 MG PO (20:10)
[2021-01-01 02:03] VITALS: PULSE 78; RESP 13; O2SAT 90
[2021-01-01 02:25] VITALS: BP 100/60; PULSE 79; RESP 16; TEMP 36.5; O2SAT 95
[2021-01-01] MEDS: ACETAMINOPHEN 500 MG TABLET 1000 MG PO (05:31)
[2021-01-01 05:49] VITALS: BP 100/50; PULSE 83; RESP 16; TEMP 36.7; O2SAT 92
[2021-01-01] MEDS: oxyCODONE/ACETAMINOPHEN (*CRX) 5-325 MG TABLET 1 TABLET PO (07:20)
[2021-01-01] MEDS: polyethylene glycoL 3350 17 GM POWD.PACK PO (08:04)
[2021-01-01] MEDS: DULoxetine HCL 60 MG CAPSULE.DR PO (08:04)
[2021-01-01] MEDS: hydroCHLOROthiazide 12.5 MG CAPSULE PO (08:04)
[2021-01-01] MEDS: LOSARTAN POTASSIUM 100 MG TABLET PO (08:05)
[2021-01-01] MEDS: CELECOXIB 200 MG CAPSULE PO (08:05)
[2021-01-01] MEDS: PANTOPRAZOLE 40 MG TABLET PO (08:05)
[2021-01-01] MEDS: DOCUSATE SODIUM 100 MG CAPSULE PO (08:05)
[2021-01-01] MEDS: ASPIRIN 325 MG ENTERIC TABLET PO (08:05)
[2021-01-01] MEDS: FAMOTIDINE 20 MG TABLET PO (08:05)
[2021-01-01] MEDS: FUROSEMIDE 20 MG TABLET PO (08:05)
[2021-01-01] MEDS: diphenhydrAMINE HCl CAP 25 MG CAPSULE PO (08:06)
--- NOTE | 2021-01-01 09:31 | PM.PNORT ---
Progress Note: A&P Assessment and Plan (1) S/P total knee arthroplasty: Qualifiers: Laterality: right Qualified Code(s): Z96.651 - Presence of right artificial knee joint Code(s): Z96.659 - Presence of unspecified artificial knee joint Status: Acute Assessment and Plan: POD #2: Right TKA Continue PT/OT. WBAT. Walker. HIGH FALL RISK. Continue pain control. Ice knee. SCDs. Incentive Spirometry. DVT prophylaxis. Monitor dressing. Change prior to discharge. Dispo: Home with Home Health pending progress with PT/OT. Subjective Subjective Date/Time Seen: 01/01/21 09:31 Post Op day: 2 Principal diagnosis: Right TKA Interval history: POD #2: Right TKA No new complaints this AM. Mild dizziness s/p breakfast. Working with OT and doing well. Still with complaints of swelling and mild numbness right foot. Able to flex/extend. Review of Systems Review of Systems: All systems reviewed & are unremarkable except as noted in HPI and below Constitutional: Constitutional: Denies fever(s) and Denies headache(s) ENT: Denies headache(s) Cardiovascular: Cardiovascular: Denies chest pain, Denies diaphoresis, Denies palpitations and Denies dyspnea Respiratory: Respiratory: Denies dyspnea Gastrointestinal: Gastrointestinal: Denies abdominal pain, Denies constipation, Denies nausea and Denies vomiting Genitourinary: Genitourinary: Reports nocturia and Denies dysuria Musculoskeletal: Musculoskeletal: Reports arthralgias (Right Knee ) and Reports joint swelling (Right Knee ) Neurologic: Denies headache(s) Endocrine: Endocrine: Denies palpitations Exam Const: General: comfortable and no acute distress Resp: Effort & Inspection: normal respiratory effort Cardio: Rate: regular rate Rhythm: regular rhythm GI: GI Palp: Yes Soft to palpation, No Tenderness to palpation present (GI) and No Guarding due to palpation present (GI) Skin: Wounds: wounds noted Other: Incision c/d/i. No surrounding redness/warmth. No hematoma. Mild ecchymosis. No wound dehiscence Neuro: Cognition (Neuro): normal cognition Other: NV intact. Moves toes. Decreased sensation to foot. +ankle dorsiflexion/plantarflexion. Extrem: Right lower extremity: normal to inspection, knee Details: tenderness (diffuse, mild ) and swelling (diffuse, mild ), lower leg ( Negative Roma sign), ankle ( positive ankle dorsiflexion/ plantar flexion) and foot ( 2+ pedal pulses) Details: edema ( 2+ pitting edema foot) and motor-sensory exam Details: light-touch abnormal ( decreased sensation to toes and foot) Location: in all toes Left lower extremity: normal to inspection Psych: Mental Status: mental status grossly normal Affect: normal affect Objective Data Vital Signs Vital Signs: Vital Signs - 24 hr 12/31/20 10:00 12/31/20 14:30 12/31/20 18:00 Temperature 36.6 C 36.4 C L 36.4 C Pulse Rate 86 74 81 Respiratory Rate 16 14 14 Blood Pressure 132/62 128/56 L 101/54 L Pulse Oximetry 97 99 95 12/31/20 22:23 01/01/21 02:03 01/01/21 02:25 Temperature 36.1 C L 36.5 C Pulse Rate 99 78 79 Respiratory Rate 16 13 16 Blood Pressure 107/83 100/60 Pulse Oximetry 94 90 95 01/01/21 05:49 Temperature 36.7 C Pulse Rate 83 Respiratory Rate 16 Blood Pressure 100/50 L Pulse Oximetry 92 Intake/Output Intake/Output: Intake & Output 12/29/20 12/30/20 12/31/20 01/01/21 23:59 23:59 23:59 23:59 Intake Total 1280 1850 300 Output Total 1000 Balance 1280 850 300 Meds/Results Medications: Active Medications Generic Name Dose Route Start Last Admin Trade Name Freq PRN Reason Stop Dose Admin Acetaminophen 1,000 mg 12/30/20 14:55 01/01/21 05:31 Acetaminophen 500 Mg Tablet PO 1,000 mg Q6H PRN Administration Pain Rated 1-3 Alendronate Sodium 70 mg 01/04/21 06:30 Alendronate Sodium 70 Mg Tablet PO Lal@0630 [facility] Amlodipine Besylate 10 mg 12/30/20 21:00 12/31/20 20:10 Amlodipine Besylate 5
[2021-01-01 09:45] VITALS: BP 101/44; PULSE 78; RESP 20; TEMP 35.7; O2SAT 99
[2021-01-01 14:11] VITALS: BP 101/46; PULSE 79; RESP 16; TEMP 36.1; O2SAT 97
--- NOTE | 2021-01-01 15:27 | PM.DS ---
DS: Admitting Diagnosis Admitting Diagnosis Admitting Diagnosis: . (1) Osteoarthritis of right knee: Code(s): M17.11 - Unilateral primary osteoarthritis, right knee Status: Acute Assessment and Plan: Status post right knee surgery. Will continue pain medication and physical therapy. (2) Mixed hyperlipidemia: Code(s): E78.2 - Mixed hyperlipidemia Status: Acute Assessment and Plan: Stable current medication. (3) HTN (hypertension): Code(s): I10 - Essential (primary) hypertension Status: Acute Assessment and Plan: Will monitor closely stable on current medication. (4) GERD (gastroesophageal reflux disease): Code(s): K21.9 - Gastro-esophageal reflux disease without esophagitis Status: Acute Assessment and Plan: stable on current medications (5) Depression: Code(s): F32.9 - Major depressive disorder, single episode, unspecified Status: Acute DS: Discharge Diagnosis Discharge Diagnosis (1) Osteoarthritis of right knee: Code(s): M17.11 - Unilateral primary osteoarthritis, right knee Status: Acute Assessment and Plan: Status post right knee surgery. Will continue pain medication and physical therapy. (2) Mixed hyperlipidemia: Code(s): E78.2 - Mixed hyperlipidemia Status: Acute Assessment and Plan: Stable current medication. (3) HTN (hypertension): Code(s): I10 - Essential (primary) hypertension Status: Acute Assessment and Plan: Will monitor closely stable on current medication. (4) GERD (gastroesophageal reflux disease): Code(s): K21.9 - Gastro-esophageal reflux disease without esophagitis Status: Acute Assessment and Plan: stable on current medications (5) Depression: Code(s): F32.9 - Major depressive disorder, single episode, unspecified Status: Acute Assessment and Plan: Stable on current medication DS: Summary Hospital Course Reason for hospitalization: right total knee arthroplasty Hospital Course: Mya Espinoza is a 70 year old female was seen today for management of hypertension and high cholesterol. Patient is status post right knee surgery. Patient denies any complaints at present time. Patient denies any shortness of breath or chest pain. No abdominal pain, no nausea, no vomiting. No fever. Mood stable. Pain under control PATIENT UNDERWENT A RIGHT TOTAL KNEE ARTHROPLASTY POST OP PERIOD WAS GOOD NO COMPLICATIONS. Status at Discharge Cognitive/behavioral status at discharge: AAOX3 Time Spent with Patient Time attestation: Total time spent providing and/or coordinating discharge services: Exam Const: General: cooperative and no acute distress Nutritional Appearance: average body habitus Orientation/consciousness: oriented to person, oriented to place, oriented to time and patient oriented x3 HENMT: Head: normal to inspection Ears: hearing grossly normal bilaterally and external ears normal General nose exam: Normal external nose present Face and sinus: normal facial exam Mouth: Yes Normal oral and palatal mucosa present Eyes: General: appearance normal, both eyes and all related structures Pupils: Equal, round and reactive pupils present EOM: EOMs intact bilaterally Neck: Neck: normal visual inspection and full ROM Thyroid: thyroid normal Lymphatic: no lymphadenopathy noted Chest: Chest palpation & inspection: normal inspection of the chest and normal palpation of entire chest wall Resp: Effort & Inspection: normal respiratory effort Auscultation: clear to auscultation bilaterally Cardio: Jugular venous distension: no JVD Palpation: normal PMI Rate: regular rate Rhythm: regular rhythm Heart sounds: S1 normal heart sound present and S2 normal heart sound present GI: Inspection: normal to inspection GI Palp: Yes Soft to palpation and Yes No hepatosplenomegaly present : General: Yes deferre
--- NOTE | 2021-01-01 15:48 | PM.DS ---
DS: Admitting Diagnosis Admitting Diagnosis Admitting Diagnosis: Right knee DJD DS: Discharge Diagnosis Discharge Diagnosis (1) S/P total knee arthroplasty: Qualifiers: Laterality: right Qualified Code(s): Z96.651 - Presence of right artificial knee joint Code(s): Z96.659 - Presence of unspecified artificial knee joint Status: Acute Assessment and Plan: POD #2: Right TKA Continue PT/OT. WBAT. Walker. HIGH FALL RISK. Continue pain control. Ice knee. SCDs. Incentive Spirometry. DVT prophylaxis. Monitor dressing. Change prior to discharge. Dispo: Home with Home Health pending progress with PT/OT. DS: Summary Hospital Course Reason for hospitalization: right total knee arthroplasty Hospital Course: 70-year-old female admitted with a history of right knee DJD for right total knee arthroplasty. Patient admitted status post right total knee arthroplasty for postoperative medical management, pain control and physical and occupational therapy. Patient had slow progress with PT and OT on postop day 1. She did complain of some decreased sensation in the right foot. Positive ankle dorsiflexion /plantar flexion. She had improvement in symptoms on postop day 2 with still mild decreased sensation in the foot. Negative Homans sign. She progressed well with PT and OT on postop day 2. She has been deemed safe to be discharged home with home health at this time. Cleared from a medicine standpoint as well. Patient will be discharged home with home health and will follow up with the patient in 3 weeks. Status at Discharge Functional status at discharge: uses cane/walker Overall status at discharge: patient is progressing back to baseline Time Spent with Patient Time attestation: Total time spent providing and/or coordinating discharge services: Exam Const: General: comfortable and no acute distress Resp: Effort & Inspection: normal respiratory effort Cardio: Rate: regular rate Rhythm: regular rhythm Skin: Wounds: wounds noted Other: Incision c/d/i. No surrounding redness/warmth. No hematoma. Mild ecchymosis. No wound dehiscence Neuro: Cognition (Neuro): normal cognition Other: NV intact. Moves toes. Decreased sensation to dorsal and plantar aspect of the foot. +ankle dorsiflexion/plantarflexion. Calf soft. Nontender. Extrem: Right lower extremity: normal to inspection, knee Details: tenderness (diffuse, mild ) and swelling (diffuse, mild ), lower leg ( Negative Roma sign), ankle ( positive ankle dorsiflexion/ plantar flexion) and foot ( 2+ pedal pulses) Details: edema ( 2+ pitting edema foot) and motor-sensory exam Details: light-touch abnormal ( decreased sensation to toes and foot) Location: in all toes Left lower extremity: normal to inspection Psych: Mental Status: mental status grossly normal Affect: normal affect Discharge Plan Discharge Attending physician on discharge: Jamie Silva Consulting providers: Adrian Campos Discharging Clinician: Kathryn Rosa Patient Disposition: Home Health Service Activity: may shower, no driving and follow weight bearing status Diet: as tolerated Wound Care Instructions: follow printed instructions Discharge Instructions: Post Op Total Knee Replacement Instructions Dr. Jamie Silva [phone] ? Your dressing will be changed prior to your discharge. You will be sent home with one additional dressing to be changed in 5 days by the home health RN. Your elias will be removed on the 14th day after surgery and steri-strips will be placed. ? You may shower with your dressing but do not submerge in a bath tub. ? Do not drive or operate machinery until you are released by Dr. Silva. ? Do not walk without a walker for any reason until you are released by Dr. Silva. ? Continue to use your ice machine. Please use a towel or pillow case to protect your skin before applying your ice machine. ? Do NOT place a pillow under yo
== END 2021-01-01 16:20 | disposition home health service (06) ==
LOC: ANHSURGERY 18:48 → ANH2MED 18:48
PROVIDERS: Admitting Provider Orthopaedic Surgery; Visit Provider Orthopaedic Surgery
PROC: (CPT 27447; principal; 2020-12-30 11:00)
DX: M17.11 Unilateral primary osteoarthritis, right knee (principal); G89.18 Other acute postprocedural pain; E78.2 Mixed hyperlipidemia; I10 Essential (primary) hypertension; K21.9 Gastro-esophageal reflux disease without esophagitis; F32.9 Major depressive disorder, single episode, unspecified
CPT/HCPCS: 27447; 64447; 36415; 73560; 80048; 80307; 81003; 82040; 83036; 85025; 85610; 85730; 86850; 86900; 86901; 87081; 97110; 97116; 97161; 97165; 97530; 97535; A9270; C1713; C1776; G0378; J0171; J0690; J1100; J1170; J2405; J2704; J2795; J3010; J7030; J7120

== ENCOUNTER 2021-03-10 11:00 | Outpatient (RCR) | payer OTHER, SELFPAY ==
--- NOTE | 2021-02-04 11:53 | PTOPEVAL ---
Thank you for referring Mya Espinoza to [facility].? The patient is scheduled to be seen for therapy? 2 x/week for 8 weeks. Please review, sign, date and return this plan of care CORINNA. I agree with and certify that the following plan of care is medically necessary. Referring Physician Date Attending Provider: Jamie Silva MD Diagnosis right TKR Onset 12/30/20 Cause OA Additional Evaluation Detail She has been DX with plantarfascitis She received home health therapy. She has steps to enter house with use of cane. She has been limited with her activities for the past 2 yrs due to knee pain. She watches [employer] for the past 3 yrs. She has performed a fitness program for the past 5 yrs. Subjective Information She has been very limited with Query Text:As Reported By Patient/ her activities due to knee Family and foot pain. 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 She does minimal walking outside unless someone is with her. She is limited with standing, walking, household, steps, and sitting activities. She has difficulty with squating and carrying activities. Previous Treatments Previous Treatments For This Problem home health Pain Assessment Right Foot/Feet Reported Pain Level 5 Pain Description Numbness,Sharp,Shooting Pain Frequency Acute,Continuous Lowest Pain Intensity 2 Greatest Pain Intensity 9 Pain Aggravating Factors Exercise/Activity,Walking, Weight Bearing/Standing Right Knee(s) Reported Pain Level 0 Pain Description Soreness Pain Frequency Acute,Intermittent Lowest Pain Intensity 0 Greatest Pain Intensity 4 Pain Aggravating Factors Walking,Weight Bearing/ Standing Lower Extremity Range of Motion Knee Range of Motion Right Knee Flexion Range of Motion - Active 110 Knee Extension Range of Motion - Active 0 Ankle/Foot Range of Motion R
--- NOTE | 2021-03-10 16:54 | PTOPEVAL ---
Physical Therapy Progress Note Thank you for referring Mya Espinoza to [facility].?Pt progressing towards therapy goals. See summary below for detail of progress and objective measures. The patient is scheduled to be seen for therapy? 2 x/week for 4 weeks. Please review, sign, date and return this plan of care CORINNA. I agree with and certify that the following plan of care is medically necessary. Referring Physician Date Attending Provider: Jamie Silva MD Diagnosis right TKR Onset 12/30/20 Cause OA Additional Evaluation Detail She has been DX with plantarfascitis She received home health therapy. She has steps to enter house with use of cane. She has been limited with her activities for the past 2 yrs due to knee pain. She watches 3 [employer] for the past 3 yrs. She has performed a fitness program for the past 5 yrs. Subjective Information She does feel her knee is Query Text:As Reported By Patient/ better, but cont pain in her Family foot and lower leg. She cont to c/o weakness of her lower leg and foot. She is performing more activities at home including light kitchen task, seated laundry. She is performing more walking at home and community. She wears shoes when at home to improve foot support. She does feel she is able to claire steps better but with step together pattern. Improved knee pain on the steps. Pain Assessment Right Foot/Feet Reported Pain Level 7 Pain Description Heavy,Numbness,Sharp,Tingling Pain Frequency Acute,Continuous Lowest Pain Intensity 6 Greatest Pain Intensity 9 Pain Aggravating Factors Exercise/Activity,Walking, Weight Bearing/Standing Right Knee(s) Reported Pain Level 3 Pain Description Aching,Soreness,Tightness Pain Frequency Acute,Intermittent Lowest Pain Intensity 0 Greatest Pain Intensity 7 Pain Aggravating Factors Walking,Weight Bearing/ Stand
--- NOTE | 2021-03-16 10:25 | PCPTNOTE ---
Patient did not show up for scheduled appointment this date. Called and spoke with . informed Pt fell and broke her femur. After speaking with , informed we will be cancelling all future appointments due to injury requiring new orders as well as weight bearing orders due to femur fracture. understood and agreed.
--- NOTE | 2021-03-24 08:33 | PCPTNOTE ---
Admitting Provider: Attending Provider: Jamie Silva MD Patient:Mya Espinoza Date of :1950 Discharge Therapy Note Patient has not returned for any further treatments since 03/10/2021, due to had a fall resulting in femur fracture. Therefore she will be discharged at this time. Patient?s initial visit was on 02/04/2021 08:30 and she had a total of 10 visits. The goals have been partially met at this time. Thank you for referring this patient to [facility]. Please review, sign, date and return this discharge summary CORINNA. I have been updated about the patient's current status and I agree with discharge from the above service at this time. Referring Physician Date
== END 2021-03-24 16:17 | disposition home or self-care (01) ==
LOC: ANHPT 11:00
PROVIDERS: Visit Provider Orthopaedic Surgery
DX: Z47.1 Aftercare following joint replacement surgery (principal); Z96.651 Presence of right artificial knee joint
CPT/HCPCS: 97110; 97112; 97113; 97162

== ENCOUNTER 2021-06-24 10:00 | Outpatient (RCR) | payer OTHER, SELFPAY ==
--- NOTE | 2021-04-20 09:29 | PTOPEVAL ---
PHYSICAL THERAPY EVALUATION AND PLAN OF CARE Thank you for referring Mya Espinoza to [facility].? The patient is scheduled to be seen for therapy 2x/week for 4-8 weeks. Please review, sign, date and return this plan of care CORINNA. I agree with and certify that the following plan of care is medically necessary. Referring Physician Date Attending Provider: Lorelei Arndt, DO Evaluation Outpatient Past Medical History Neurological History Hx Migraine Yes: LAST 2000 Cardiovascular History Hx Heart Murmur Yes Hx Hypercholesterolemia Yes Hx Hypertension Yes Hx Mitral Valve Prolapse Yes Hx Other Cardiac Disorders Yes: PT DENIES CARDIAC SYMPTOMS, ACTIVE WATCHES 3 GRANDCHILDERN AGE 5, 3 & 2 Respiratory History Hx Sleep Apnea Yes: HAS CPAP Gastrointestinal History Hx Bowel Surgery Yes: 1999 - HAD COLON SURGERY TO REMOVE PRECANCEROUS COLON POLYP Hx Cholecystectomy Yes Hx Gastroesophageal Reflux Disease Yes Hx Polyps Yes Hx Other Gastrointestinal Disorders Yes: CONSTIPATION Genitourinary History Hx Genitourinary Disorders No Significant History Musculoskeletal History Hx Arthritis Yes: KNEES Hx Crutches or Walker Use Yes: HAS WALKER FOR POST OP Query Text:If Yes, Enter Crutches, USE Walker, or Both in the Comment Hx Joint Replacement Yes: right TKR 12/30/20 Hx Orthopedic Surgery Yes: RT KNEE ARTHROSCOPY 2000 Hx Osteoporosis Yes Hx Spinal Surgery Yes: 2007 CERVICAL FUSION C5- C6-C7 - METAL SCREWS/PLATES Hematological History Hx Blood Transfusions Yes Endocrine History Hx Endocrine Disorders No Significant History HEENT History Hx Tonsillectomy Yes Hx Ear Surgery Yes: RT INNER EAR TUMOR REMOVED, 2015 RT COCHLEAR IMPLANT Hx Other HEENT Disorders Yes: DEAF RT EAR Integumentary History Hx Skin Disorders No Significant History Reproductive History Hx Section Yes: X1 Psychosocial History Hx Depression Yes: DUE TO OF HER DAUGHTER 2000 Pain History Has Past Pain Affected Your Daily Life Yes: RT KNEE Anesthesia History Hx Other Anesthesia Reactions Yes: SLOW TO WAKE Other History Hx Implanted Device Yes: COCHLEAR IMPLANT, C- SPINE Diagnosis right femoral fracture Onset 03/2021 Subjective Information Mya is here today 3months s/ Query Text:As Reported By Patient/ p right TKA that was
--- NOTE | 2021-05-14 09:48 | PCPTNOTE ---
Patient called & cancelled scheduled appointment this date due to not feeling well.
--- NOTE | 2021-05-19 13:25 | PCPTNOTE ---
Note written by my, Izabela Law, PT, DPT, on 05/18 at 7:40AM was written for the wrong patient. Please disregard this note and charges from this date and time.
--- NOTE | 2021-05-21 13:51 | PTOPEVAL ---
PHYSICAL THERAPY PROGRESS REPORT Thank you for referring Mya Espinoza to [facility].? The patient is scheduled to be seen for therapy? 2x/week for 4 weeks. I agree with and certify that the following plan of care is medically necessary. Referring Physician Date Attending Provider: Lorelei Arndt, DO Progress Diagnosis right femoral fracture Onset 03/2021 Subjective Information Mya reports that overall Query Text:As Reported By Patient/ things are going ok. She has a Family lot of pins and needles in right foot due to the nerve damage and she wears a compression sleeve. Self Report Pain Assessment Right Knee(s) Reported Pain Level 4 Pain Description Aching,Burning Lowest Pain Intensity 4 Pain Aggravating Factors Bending Right Hip(s) Reported Pain Level 0 Greatest Pain Intensity 3 Pain Score Pain Score 4,0: Self Report Interventions Used Interventions Used By Clinicians Electrical Stimulation, Exercise,Ice,Manual Therapy Techniques Pain Relief Interventions Used By Exercise,Ice,Inactivity/Rest Patient Lower Extremity Range of Motion Hip Range of Motion Right Hip Flexion Range of Motion - Active 105 Knee Range of Motion Right Knee Flexion Range of Motion - Active 118 Knee Extension Range of Motion - Active 0 Query Text: Lower Extremity Muscle Strength Testing Hip Strength Right Hip Flexion Strength 3+ Fair + Hip Extension Strength 3 Fair Hip Abduction Strength 3 Fair Hip Strength Comments single leg stand: left = 4seconds, right = 1second Knee Strength Right Knee Flexion Strength 4+ Good + Knee Extension Strength 4 Good Ankle Strength Right Ankle Dorsiflexion Strength 5 Normal Ankle Plantarflexion Strength 1 Trace Balance Assessment 5 Time Sit to Stand Time in Seconds 11.65 5 Time Sit to Stand Comments hands on knees Query Text:Normative Data: If Greater Than 15 Seconds, 74% Increase Risk for Recurrent Falls Gait Assessment 2 Minute Walk Total Distance Walked (feet) 208 2 Minute Walk Gait Speed Score (feet/ 1.73 second) General Exercise Side Right Exercise Location LE Exercise Type Active Exercise Description - supine SLR [id number] with good Query Text:Record Sets, Reps, muscle contraction; cues for Resistance, and Position core activation to reduce low back arch
--- NOTE | 2021-06-22 10:00 | PCPTNOTE ---
Patient called & cancelled scheduled appointment this date due to not feeling well.
--- NOTE | 2021-06-24 10:36 | PTOPEVAL ---
PHYSICAL THERAPY DISCHARGE NOTE Thank you for referring Mya Espinoza to [facility].? Please review, sign, date and return this plan of care CORINNA. I agree with and certify that the following plan of care is medically necessary. Referring Physician Date : Attending Provider: Lorelei Arndt, DO Discharge Diagnosis right femoral fracture Onset 03/2021 Subjective Information States that she uses her cane Query Text:As Reported By Patient/ at home sometimes but her Family prefers she make sure he is home when she does. States she feesl pretty good when walking at home with the cane. As for pain in the right knee, states that when she has her leg dangling she has no pain but when walking today it is a 2-3/10. Mya is going to be participating in a study at [facility] where she will be participating in physical therapy. Self Report Pain Assessment Right Knee(s) Reported Pain Level 3 Pain Description Tightness Pain Aggravating Factors Bending Right Hip(s) Reported Pain Level 0 Pain Score Pain Score 3,0: Self Report Interventions Used Interventions Used By Clinicians Exercise Pain Relief Interventions Used By Exercise,Ice,Inactivity/Rest Patient Lower Extremity Range of Motion Hip Range of Motion Right Hip Flexion Range of Motion - Active 105 Knee Range of Motion Right Knee Flexion Range of Motion - Active 120 Knee Extension Range of Motion - Active 0 Query Text: Lower Extremity Muscle Strength Testing Hip Strength Right Hip Flexion Strength 5 Normal Hip Extension Strength 4+ Good + Hip Abduction Strength 4 Good Hip Strength Comments single leg stand: left = 4seconds, right = 1second - states there is a lot of pain in the right glutes when trying to stand on one leg Knee Strength Right Knee Flexion Strength 5 Normal Knee Extension Strength 5 Normal Ankle Strength Right Ankle Dorsiflexion Strength 5 Normal Ankle Plantarflexion Strength 1 Trace Balance Assessment 5 Time Sit to Stand Time in Seconds 11.46 5 Time Sit to Stand Comments 1month ago = 11.65 with hands Query Text:Normative Data: If Greater on knees Than 15 Seconds, 74% Increase Ri
== END 2021-06-24 14:34 | disposition home or self-care (01) ==
LOC: ANHPT 10:00
PROVIDERS: PCP Family Medicine; Visit Provider Physical Medicine & Rehabilitation
DX: S72.91XD Unspecified fracture of right femur, subsequent encounter for closed fracture with routine healing (principal)
CPT/HCPCS: 97014; 97110; 97116; 97140; 97163; G0283

== ENCOUNTER 2021-08-28 14:34 | Outpatient (CLI) | payer OTHER, SELFPAY ==
--- NOTE | ~2021-08-28 | XR_ITS ---
EXAMINATION: XR abdomen/kub 1V DATE: 08/28/2021 14:59 INDICATION: Dysuria. Low back pain. TECHNIQUE: A supine view of the abdomen on 2 radiographs was obtained. COMPARISON: None. FINDINGS: There are no dilated loops of bowel. Surgical clips in the right upper quadrant are likely from cholecystectomy. There is an old healed fracture of proximal right femur with internal fixation. There is severe lower lumbar spondylosis. IMPRESSION: 1. No visible urolithiasis. Reviewed, dictated and finalized at location A. [facility] ROOM IMPRESSION: 1. No visible urolithiasis.
== END 2021-08-28 14:35 | disposition home or self-care (01) ==
PROVIDERS: PCP Family Medicine; Visit Provider Nurse Practitioner Gerontology
DX: R30.0 Dysuria (principal); R10.9 Unspecified abdominal pain
CPT/HCPCS: 74018

== ENCOUNTER 2021-09-15 10:15 | Outpatient (CLI) | payer OTHER, SELFPAY ==
--- NOTE | 2021-09-15 11:00 | NEURO_ITS ---
Impression: # Complains of numbness and pain in right lower extremity. History of right knee and hip surgeries. 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 # Decreased motor unit potentials in right quadriceps as well. # Clinical correlation recommended. Nerve Conduction Studies Anti Sensory Summary Table Stim Site NR Peak (ms) P-T Amp (?V) Site1 Site2 Delta-P (ms) Dist (cm) Trace (m/s) Right Sup Fibular Anti Sensory (Ant Lat Mall) NO RESPONSE 14 cm NR 14 cm Ant Lat Mall 16.0 Right Sural Anti Sensory (Lat Mall) NO RESPONSE Calf NR Calf Lat Mall 16.0 Motor Summary Table Stim Site NR Onset (ms) O-P Amp (mV) Site1 Site2 Delta-0 (ms) Dist (cm) Trace (m/s) Right Peroneal Motor (Vastus Med) Ankle 4.2 1.9 Popit Ankle 6.7 32.0 48 Popit 10.9 1.8 Right Tibial Motor (Abd Alejandro Brev) NO RESPONSE Ankle NR F Wave Studies NR F-Lat (ms) L-R F-Lat (ms) Right Peroneal (Mrkrs) (EDB) 43.87 Right Tibial (Mrkrs) (Abd Hallucis) NO RESPONSE NR EMG Side Muscle Nerve Root Ins Act Fibs Amp Dur Recrt Comment Right AntTibialis Dp Br Fibular L4-5 Nml Nml Nml Nml Nml Right Gastroc Tibial S1-2 Nml Nml Decr Nml Reduced Right Fibularis Long Sup Br Fibular L5-S1 Nml Nml Nml Nml Nml Right Flex Dig Long Tibial L5-S2 Nml Nml Nml Nml Nml Right Ext Dig Brev Dp Br Fibular L5, S1 Nml Nml Nml Nml Nml Right QuadratusFem QuadFemoris L4-5, S1 Nml Nml Decr Nml Reduced MTDD
== END 2021-09-15 10:16 | disposition home or self-care (01) ==
PROVIDERS: PCP Family Medicine; Visit Provider Family Medicine
DX: G57.41 Lesion of medial popliteal nerve, right lower limb (principal); R20.0 Anesthesia of skin
CPT/HCPCS: 95886; 95908

== ENCOUNTER 2023-05-29 12:39 | Emergency (ER) | payer OTHER, SELFPAY ==
--- NOTE | ~2023-05-29 | XR_ITS ---
EXAMINATION: XR chest 2V DATE: 05/29/2023 13:16 INDICATION: Cough TECHNIQUE: Frontal and lateral views of the chest are obtained COMPARISON: None available FINDINGS: There are minimal airspace opacities of the left lung base. No pleural effusion or pneumoth orax. The cardiomediastinal silhouette is normal. There are partially imaged changes of anterior cerv ical fusion in the lower cervical spine. There is moderate thoracic spondylosis. IMPRESSION: 1. Minimal airspace opacities of the left lung base, consistent with atelectasis versus pneumonia. Reviewed, dictated and finalized at location A. [employer]ISH[employer] IMPRESSION: 1. Minimal airspace opacities of the left lung base, consistent with atelectasi s versus pneumonia.
--- NOTE | 2023-05-29 12:43 | ED.URI ---
HPI - URI/Sore Throat General Chief Complaint: Upper Respiratory Infection Stated Complaint: cough,chest/back burn Time Seen by Provider: 05/29/23 12:41 Source: patient Mode of arrival: ambulatory Limitations: no limitations History of Present Illness HPI Narrative: Mya is a 72-year-old female patient presenting to the clinic today with complaints of cough, shortness of breath, pain with breathing x 3 weeks. She reports she was seen by her PCP and was told that she may have more of a bronchitis due to [place] out [place] a [place]. They withheld giving her steroids at that time. States 1 week later she went to an urgent care and she was diagnosed with acute bacterial rhinosinusitis and given prescription for prednisone, doxycycline, and Tessalon Perles. States that she took 1 dose of the doxycycline and became violently ill-vomiting and stomach cramps. She finished up taking the prednisone and is still taking the Tessalon Perles but her symptoms are persistent. Reports some mild shortness of breath. Is having a productive cough with yellow phlegm. She denies any fever or chills. MD elicited complaint: cough, rhinorrhea, nasal congestion and other Related Data Home Medications Medication Instructions Recorded Confirmed multivitamin 1 tablet PO DAILY 08/02/19 05/29/23 calcium carbonate 600 mg-vitamin 1 cap PO HS 02/14/20 05/29/23 D3 12.5 mcg (500 unit) capsule (Calcium 600 with Vitamin D3) gabapentin 400 mg capsule 400 mg PO TID 08/02/22 05/29/23 albuterol sulfate 90 mcg/actuation inhalation 05/29/23 aerosol inhaler benzonatate 100 mg capsule mg PO 05/29/23 doxycycline hyclate 100 mg capsule mg 05/29/23 mirtazapine 15 mg tablet mg 05/29/23 prednisone 20 mg tablet mg 05/29/23 Allergies Allergy/AdvReac Type Severity Reaction Status Date / Time morphine Allergy Severe RASH,VOMITING,throat Verified 05/29/23 12:42 swelling Penicillins Allergy Severe THROAT Verified 05/29/23 12:42 SWELLING Sulfa (Sulfonamide Allergy Intermediate headache/na Verified 05/29/23 12:42 Antibiotics) usea/rash procaine [From Novocain] Allergy Mild Headache, Verified 05/29/23 12:42 nausea, rash tramadol [From Ultram] Allergy Unknown Unknown Verified 05/29/23 12:42 hydrocodone AdvReac Mild VOMITTING Verified 05/29/23 12:42 Review of Systems Review of Systems: Pertinent positives per HPI. Patient denies any fever, chills, rash, headache, visual changes, dizziness, shortness of breath, chest pain, palpitations, nausea, vomiting, diarrhea, constipation, abdominal pain, or any urinary issues. COUNTS INCLUDE 234 BEDS AT THE [facility] Past Medical History Medical History Abscess Asthma Atherosclerosis of aorta Back pain Chronic diastolic (congestive) heart failure Chronic sinus infection Degenerative joint disease of knee Depression Diverticulosis Endometriosis Epistaxis Gallbladder disease GERD (gastroesophageal reflux disease) Heart murmur HLD (hyperlipidemia) HTN (hypertension) IBS (irritable bowel syndrome) MDD (major depressive disorder), recurrent episode, moderate Mitral regurgitation Mitral valve prolapse Mixed hyperlipidemia Obstructive sleep apnea Osteoarthritis Osteoarthritis of right knee Osteopenia Pancreatic cyst Pancreatitis Personal history of colonic polyps Rectal polyp Right femoral fracture Right knee pain Screening for breast cancer Sleep apnea Stress incontinence Toe fracture, left Ulcer URI (upper respiratory infection) Surgical History Surgical History History of section History of cholecystectomy History of cochlear implant rt ear History of colon surgery History of dilation and curettage History of hysterectomy History of neck surgery History of tonsillectomy S/P arthroscopic surgery of right knee S/P total knee arthroplasty Family History Family History (Reviewed 05/29/23 @ 14:07
[2023-05-29 12:53] VITALS: BP 143/73; PULSE 97; RESP 18; TEMP 36.7; O2SAT 94
== END 2023-05-29 14:02 | disposition home or self-care (01) ==
PROVIDERS: Emergency Provider Nurse Practitioner Family; PCP Family Medicine
DX: J18.9 Pneumonia, unspecified organism (principal); J45.909 Unspecified asthma, uncomplicated; I70.0 Atherosclerosis of aorta; N80.9 Endometriosis, unspecified; K21.9 Gastro-esophageal reflux disease without esophagitis; R01.1 Cardiac murmur, unspecified; E78.5 Hyperlipidemia, unspecified; I11.0 Hypertensive heart disease with heart failure; I50.30 Unspecified diastolic (congestive) heart failure; E78.2 Mixed hyperlipidemia; I34.1 Nonrheumatic mitral (valve) prolapse; M17.11 Unilateral primary osteoarthritis, right knee; M85.80 Other specified disorders of bone density and structure, unspecified site
CPT/HCPCS: 71046; 99213; G0463

== ENCOUNTER 2023-09-05 18:28 | Emergency (ER) | payer OTHER, SELFPAY ==
--- NOTE | ~2023-09-05 | XR_ITS ---
EXAM: XR foot RT min 3V DATE: 09/05/2023 18:59 HISTORY: pain rt distal toes s/p injury 4 weeks ago . COMPARISON: None available. FINDINGS: Decreased mineralization. No fracture or dislocation. No lytic or blastic lesion. Scattere d degenerative changes in the foot. Achilles and plantar enthesopathy. No erosion or periosteal monaco e. Soft tissues within normal limits. IMPRESSION: No acute osseous finding in the right foot. Reviewed, dictated and finalized at location K. INE ATTENDANT
--- NOTE | 2023-09-05 18:37 | ED.LOWEXIN ---
HPI - Extremity Injury (Lower) General Chief Complaint: Extremity Injury, Upper Stated Complaint: right foot injury Time Seen by Provider: 09/05/23 18:37 Source: patient Mode of arrival: ambulatory Limitations: no limitations History of Present Illness HPI Narrative: Mya is a 72-year-old female patient presenting to the clinic today with complaints of right foot pain/injury. She reports she dropped her heavy cane on her foot today she is having pain over the 3rd 4th 5th toes and the metatarsals. No bruising or swelling noted. Stated that she did this 4 weeks ago and then her dropped a glass full of ice on her foot 2 days after the initial occurrence. States she could not do physical therapy today due to the pain Related Data Home Medications Medication Instructions Recorded Confirmed multivitamin 1 tablet PO DAILY 08/02/19 09/05/23 calcium carbonate 600 mg-vitamin 1 cap PO HS 02/14/20 09/05/23 D3 12.5 mcg (500 unit) capsule (Calcium 600 with Vitamin D3) gabapentin 400 mg capsule 400 mg PO TID 08/02/22 09/05/23 albuterol sulfate 90 mcg/actuation 1 puff inhalation DIRECTED 05/29/23 09/05/23 aerosol inhaler mirtazapine 15 mg tablet 15 mg PO DIRECTED 05/29/23 09/05/23 budesonide-formoterol HFA 80 2 inh inhalation BID 09/05/23 09/05/23 mcg-4.5 mcg/actuation aerosol inhaler Allergies Allergy/AdvReac Type Severity Reaction Status Date / Time morphine Allergy Severe RASH,VOMITING,throat Verified 09/05/23 18:43 swelling Penicillins Allergy Severe THROAT Verified 09/05/23 18:43 SWELLING Sulfa (Sulfonamide Allergy Intermediate headache/na Verified 09/05/23 18:43 Antibiotics) usea/rash procaine [From Novocain] Allergy Mild Headache, Verified 09/05/23 18:43 nausea, rash tramadol [From Ultram] Allergy Unknown Unknown Verified 09/05/23 18:43 hydrocodone AdvReac Mild VOMITTING Verified 09/05/23 18:43 Review of Systems Review of Systems: Pertinent positives per HPI. Patient denies any fever, chills, rash, headache, visual changes, dizziness, cough, runny nose, sore throat, shortness of breath, chest pain, palpitations, nausea, vomiting, diarrhea, constipation, abdominal pain, or any urinary issues. [facility] Past Medical History Medical History Abscess Asthma Atherosclerosis of aorta Back pain Chronic diastolic (congestive) heart failure Chronic sinus infection Degenerative joint disease of knee Depression Diverticulosis Endometriosis Epistaxis Gallbladder disease GERD (gastroesophageal reflux disease) Heart murmur HLD (hyperlipidemia) HTN (hypertension) IBS (irritable bowel syndrome) MDD (major depressive disorder), recurrent episode, moderate Mitral regurgitation Mitral valve prolapse Mixed hyperlipidemia Obstructive sleep apnea Osteoarthritis Osteoarthritis of right knee Osteopenia Pancreatic cyst Pancreatitis Personal history of colonic polyps Rectal polyp Right femoral fracture Right knee pain Screening for breast cancer Sleep apnea Stress incontinence Toe fracture, left Ulcer URI (upper respiratory infection) Surgical History Surgical History History of section History of cholecystectomy History of cochlear implant rt ear History of colon surgery History of dilation and curettage History of hysterectomy History of neck surgery History of tonsillectomy S/P arthroscopic surgery of right knee S/P total knee arthroplasty Family History Family History Father Family history of premature coronary heart disease, Onset Age: 78 Patient's father is Social History Social History Social History: lives in a two-level house with her spouse with 4 steps to enter. Patient may go to her son's
[2023-09-05 18:42] VITALS: BP 123/89; PULSE 99; RESP 16; TEMP 37.2; O2SAT 98
[2023-09-05 18:47] VITALS: BP 123/89; PULSE 99; RESP 16; TEMP 37.2; O2SAT 98
== END 2023-09-05 19:18 | disposition home or self-care (01) ==
PROVIDERS: Emergency Provider Nurse Practitioner Family; PCP Family Medicine
DX: M19.071 Primary osteoarthritis, right ankle and foot (principal); S90.31XA Contusion of right foot, initial encounter; W20.8XXA Other cause of strike by thrown, projected or falling object, initial encounter; I11.0 Hypertensive heart disease with heart failure; I50.32 Chronic diastolic (congestive) heart failure; J45.909 Unspecified asthma, uncomplicated; I70.0 Atherosclerosis of aorta; N80.9 Endometriosis, unspecified; K21.9 Gastro-esophageal reflux disease without esophagitis; R01.1 Cardiac murmur, unspecified; I34.1 Nonrheumatic mitral (valve) prolapse; E78.2 Mixed hyperlipidemia; M85.80 Other specified disorders of bone density and structure, unspecified site
CPT/HCPCS: 73630; 99213; G0463

== ENCOUNTER 2023-11-10 11:40 | Emergency (ER) | payer OTHER, SELFPAY ==
--- NOTE | ~2023-11-10 | XR_ITS ---
EXAMINATION: XR chest 2V DATE: 11/10/2023 12:23 INDICATION: Cough. Congestion. Fever. TECHNIQUE: Frontal and lateral views of the chest were obtained. COMPARISON: Chest 2 views 05/29/2023 FINDINGS: There is no pneumonia, pleural effusion, or pneumothorax. The heart size is normal. There a re changes of anterior fusion procedure in cervical spine. Surgical clips in the right upper quadrant are likely from cholecystectomy. IMPRESSION: 1. No acute cardiopulmonary disease. Reviewed, dictated and finalized at location A.
[2023-11-10 11:50] VITALS: BP 110/91; PULSE 90; RESP 22; TEMP 38.7; O2SAT 96
[2023-11-10 11:52] VITALS: BP 110/91; PULSE 90; RESP 22; TEMP 38.7; O2SAT 96
--- NOTE | 2023-11-10 12:09 | ED.URI ---
HPI - URI/Sore Throat General Chief Complaint: Upper Respiratory Infection Stated Complaint: Ear Irritation Time Seen by Provider: 11/10/23 12:00 Source: patient Mode of arrival: ambulatory Limitations: no limitations History of Present Illness HPI Narrative: Mya is a 73-year-old female patient presenting to the clinic today with complaints cough, congestion, and left ear pain that started 1 week ago. She has a temperature of 38.7? C in the clinic today. Denies any shortness of breath unless she is coughing. History of asthma. Is bringing up some white phlegm at times. MD elicited complaint: cough, nasal congestion and other (Ear pain) Related Data Home Medications Medication Instructions Recorded Confirmed multivitamin 1 tablet PO DAILY 08/02/19 11/10/23 calcium carbonate 600 mg-vitamin 1 cap PO HS 02/14/20 11/10/23 D3 12.5 mcg (500 unit) capsule (Calcium 600 with Vitamin D3) gabapentin 400 mg capsule 400 mg PO TID 08/02/22 11/10/23 albuterol sulfate 90 mcg/actuation 1 puff inhalation DIRECTED 05/29/23 11/10/23 aerosol inhaler mirtazapine 15 mg tablet 15 mg PO DIRECTED 05/29/23 11/10/23 budesonide-formoterol HFA 80 2 inh inhalation BID 09/05/23 11/10/23 mcg-4.5 mcg/actuation aerosol inhaler Allergies Allergy/AdvReac Type Severity Reaction Status Date / Time morphine Allergy Severe RASH,VOMITING,throat Verified 09/05/23 18:43 swelling Penicillins Allergy Severe THROAT Verified 09/05/23 18:43 SWELLING Sulfa (Sulfonamide Allergy Intermediate headache/na Verified 09/05/23 18:43 Antibiotics) usea/rash procaine [From Novocain] Allergy Mild Headache, Verified 09/05/23 18:43 nausea, rash tramadol [From Ultram] Allergy Unknown Unknown Verified 09/05/23 18:43 hydrocodone AdvReac Mild VOMITTING Verified 09/05/23 18:43 Review of Systems Review of Systems: Pertinent positives per HPI. Patient denies any rash, headache, visual changes, dizziness, shortness of breath, chest pain, palpitations, nausea, vomiting, diarrhea, constipation, abdominal pain, or any urinary issues. PMFSH Past Medical History Medical History Abscess Asthma Atherosclerosis of aorta Back pain Chronic diastolic (congestive) heart failure Chronic sinus infection Degenerative joint disease of knee Depression Diverticulosis Endometriosis Epistaxis Gallbladder disease GERD (gastroesophageal reflux disease) Heart murmur HLD (hyperlipidemia) HTN (hypertension) IBS (irritable bowel syndrome) MDD (major depressive disorder), recurrent episode, moderate Mitral regurgitation Mitral valve prolapse Mixed hyperlipidemia Obstructive sleep apnea Osteoarthritis Osteoarthritis of right knee Osteopenia Pancreatic cyst Pancreatitis Personal history of colonic polyps Rectal polyp Right femoral fracture Right knee pain Screening for breast cancer Sleep apnea Stress incontinence Toe fracture, left Ulcer URI (upper respiratory infection) Surgical History Surgical History History of section History of cholecystectomy History of cochlear implant rt ear History of colon surgery History of dilation and curettage History of hysterectomy History of neck surgery History of tonsillectomy S/P arthroscopic surgery of right knee S/P total knee arthroplasty Family History Family History Father Family history of premature coronary heart disease, Onset Age: 78 Patient's father is Social History Social History Social History: lives in a two-level house with her spouse with 4 steps to enter. Patient may go to her son's home who is available 247. Smoking status: Never smoker Second hand tobacco smoke exposure: No Alcohol intake: never Subst
== END 2023-11-10 12:39 | disposition home or self-care (01) ==
PROVIDERS: Emergency Provider Nurse Practitioner Family; PCP Family Medicine
DX: J06.9 Acute upper respiratory infection, unspecified (principal); R05.9 Cough, unspecified; H66.92 Otitis media, unspecified, left ear; J45.909 Unspecified asthma, uncomplicated; I70.0 Atherosclerosis of aorta; N80.9 Endometriosis, unspecified; K21.9 Gastro-esophageal reflux disease without esophagitis; I11.0 Hypertensive heart disease with heart failure; I50.30 Unspecified diastolic (congestive) heart failure; I34.1 Nonrheumatic mitral (valve) prolapse; E78.2 Mixed hyperlipidemia; M17.11 Unilateral primary osteoarthritis, right knee; M85.80 Other specified disorders of bone density and structure, unspecified site
CPT/HCPCS: 71046; 99213; G0463